=== PATIENT | male | born 1955 | race Caucasian/White ===

== ENCOUNTER 2022-12-24 10:01 | Emergency (ER) | payer OTHER, SELFPAY ==
[2022-12-24 10:03] VITALS: PULSE 86; RESP 16; TEMP 36.6; O2SAT 96; BMI 34.7
--- NOTE | 2022-12-24 10:12 | XRR_ITS ---
PROCEDURE INFORMATION: Exam: XR Chest Exam date and time: 12/24/2022 10:16 AM Age: 67 years old Clinical indication: Cough TECHNIQUE: Imaging protocol: Radiologic exam of the chest. Views: 1 view. COMPARISON: No relevant prior studies available. FINDINGS: Lungs: Small indistinct bandlike density left projecting over the mid lung zones bilaterally likely secondary to minor atelectatic changes. Remaining lung fonseca aerated and clear. Pleural spaces: Unremarkable. No pleural effusion. No pneumothorax. Heart/Mediastinum: Cardiac silhouette is upper limits of normal. Bones/joints: Extensive the postsurgical changes involving the right scapula. Multilevel degenerative endplate osteophytes throughout the thoracic spine. Postsurgical changes left AC joint. No acute bony abnormalities. XR/XR chest 1V portable [id number] IMPRESSION: Scattered platelike atelectasis mid lung zones bilaterally otherwise negative chest.
--- NOTE | 2022-12-24 10:27 | ECG_ITS ---
[facility] Test Date: 2022-12-24 Pat Name: Gerald Greene Department: Room: Gender: Male [employer] Manager: : [id number] Requested By: Yolande Kelsey Order Number: [id number] Richardson MD: Danita Webb M.D. Measurements Intervals [place] Rate: 83 P: 52 VT: 183 QRS: -21 QRSD: 115 T: 40 QT: 371 QTc: 438 Interpretive Statements SINUS RHYTHM BORDERLINE LEFT AXIS DEVIATION [QRS AXIS < -20] INCOMPLETE RIGHT BUNDLE BRANCH BLOCK [90+ ms QRS DURATION, TERMINAL R IN V1/V2, 40+ ms S IN I/aVL/V4/V5/V6] No previous ECG available for comparison Electronically Signed On 12-24-2022 11:12:26 CDT by Danita Webb M.D. [id number]
--- NOTE | 2022-12-24 12:50 | PC.NURSE ---
Pt placed in room at this time. He is A&Ox4, but states he is having chest pain when he takes deep breaths, cough with clear phlegm production.
--- NOTE | 2022-12-24 13:14 | W.ED.URI ---
HPI - URI/Sore Throat General: Chief Complaint: Upper Respiratory Infection Stated Complaint: Chest Pain, arm and neck numbness Time Seen by Provider: 12/24/22 11:50 History of Present Illness: Patient presents ER with complaints of pleuritis like chest pain cough congestion and drainage. Patient recently moved his daughter at here about 10 days ago from the [facility]. Patient said he has been bitten by 3 ticks since he has been here and has had this congestion worsening fatigue and pain when he takes a big deep breath since then. Patient has not tried anything [id number] other than Tylenol. Patient did not have any of the symptoms prior to leaving [place]. Review of Systems General: Reports: 10 or more systems reviewed and unremarkable except in HPI and below Physical Exam Const: COMMON NORMALS: no acute distress, average body habitus, patient oriented x3, no limitations, healthy appearing, alert and well nourished HENMT: COMMON NORMALS: normocephalic, atraumatic, hearing grossly normal bilaterally, external ears normal, Normal external nose present and moist oral mucous membranes HEAD & SCALP: normocephalic and atraumatic NOSE: Normal external nose present EXTERNAL EAR: Yes external ears normal Eye: COMMON NORMALS: Equal, round and reactive pupils present, EOMs intact bilaterally, conjunctivae normal and no scleral icterus CONJUNCTIVA: Yes conjunctivae normal PUPIL: Yes Equal, round and reactive pupils present Neck/C-Spine: COMMON NORMALS: full ROM, no lymphadenopathy, supple, no meningeal signs, no JVD and Thyroid normal THYROID: Thyroid normal Lymph: LYMPHATIC: no lymphadenopathy noted Chest: COMMONS NORMALS: normal inspection of the chest and normal palpation of entire chest wall Resp: COMMON NORMALS: normal respiratory effort, No retractions and No use of accessory muscles AUSCULTATION: rhonchi (Diffuse bilaterally) Cardio: COMMON NORMALS: no JVD, regular rate, regular rhythm, S1 normal heart sound present, S2 normal heart sound present, No gallops present (Cardio), No clicks present (Cardio), No murmurs present (Cardio) and No rub (Cardio) RATE: regular rate RHYTHM: regular rhythm HEART SOUNDS: S1 normal heart sound present and S2 normal heart sound present GI: COMMON NORMALS: Normal to inspection, nondistended, normoactive bowel sounds present, Soft to palpation, non-tender, No hepatosplenomegaly present and no masses PALPATION: Yes Soft to palpation and Yes No hepatosplenomegaly present : COMMON NORMALS: Yes no CVA tenderness BLADDER/KIDNEY EXAM: Yes no CVA tenderness Back/Pelvis: COMMON NORMALS: no CVA tenderness Neuro: COMMON NORMALS: patient oriented x3 SENSORIUM/ORIENTATION: Yes alert MENINGEAL SIGNS: Yes no meningeal signs Course Vital Signs: Vital signs: Vital Signs Temperature 97.8 F 12/24/22 10:03 Pulse Rate 86 12/24/22 10:03 Respiratory Rate 16 12/24/22 10:03 Pulse Oximetry 96 12/24/22 10:03 Oxygen Delivery Me thod Room Air 12/24/22 10:03 MDM - URI/Sore Throat Medical Decision Making Patient presents to the ER with complaints of pleuritic type chest pain with shortness of breath cough congestion. Patient denies any fever chills. X-ray was obtained which was essentially negative other than some atelectasis. EKG was obtained which showed normal sinus rhythm with no ST-T wave changes. Patient's lung did have diffuse rhonchi bilaterally. Patient be diagnosed with bronchitis and pleurisy and tick bites and discharged home on antibiotics and steroids. Patient should follow-up with his PCP in the next 7 days as needed. Differential Diagnosis Likely upper respiratory infection, viral infection and bronchitis; Unlikely croup, otitis media, sinusitis, influenza or pharyngitis Medical Records I reviewed the patient's medical records. Lab Data I reviewed the patient's lab results. Radiology Impressions Chest X-Ray 12/24/22 10:12 IMPRESSION: Scattered platelike atelectasis mid lung zones bilaterally otherwise negative chest. EKG Data EKG 1: I personally reviewed and interpreted this EKG as follows: EKG interpretation date: 12/24/22 EKG interpretation time: 10:27 Prior EKG tracings: not available for review Interpretation: EKG showed normal sinus rhythm at 83 bpm, RI 183, QRS of 115, QTc of 438, incomplete right bundle branch block, borderline left axis deviation Discharge Plan Discharge Patient Disposition: Home Clinical Impression: Bronchitis Upper respiratory infection Qualifiers: URI type: unspecified URI Qualified Code(s): J06.9 - Acute upper respiratory infection, unspecified Tick bite Qualifiers: Encounter type: initial encounter Site of tick bite: unspecified site Qualified Code(s): W57.XXXA - Bitten or stung by nonvenomous insect and other nonvenomous arthropods, initial encounter Condition: Stable Prescriptions: New doxycycline hyclate 100 mg capsule 100 mg PO BID 7 Days Qty: 14 0RF prednisone 50 mg tablet 50 mg PO DAILY 5 Days Qty: 5 0RF Discharge Orders: Discharge ED (Routine); Ordered 12/24/22 Ordered By: Audie Gutierrez Patient Instructions: Tick Bite (ED), Acute Bronchitis (ED) Activity Restrictions/Additional Instructions: Please take all your medicine as directed. Please follow-up with your family practice doctor when you get back to [place] and/or in the next 7 days as needed. Coding Level of Care Code ED Fluorescent Lighting Model Maker for Dave Sr
[2022-12-24 13:42] VITALS: BP 164/104; PULSE 82; RESP 22; O2SAT 96
[2022-12-24 13:55] VITALS: BP 142/85; PULSE 83; RESP 25; O2SAT 96
== END 2022-12-24 13:56 | disposition home or self-care (01) ==
PROVIDERS: Emergency Provider Emergency Medicine
DX: J40 Bronchitis, not specified as acute or chronic (principal); J06.9 Acute upper respiratory infection, unspecified; I45.10 Unspecified right bundle-branch block; W57.XXXA Bitten or stung by nonvenomous insect and other nonvenomous arthropods, initial encounter
CPT/HCPCS: 71045; 93005; 99284

== ENCOUNTER 2023-06-16 10:35 | Emergency (ER) | payer OTHER, SELFPAY ==
[2023-06-16] VITALS (10 sets, daily range): BP systolic 110–172; BP diastolic 75–98; PULSE 78–86; RESP 17–18; TEMP 36.8; O2SAT 93–98; BMI 34.0
--- NOTE | 2023-06-16 10:56 | USR_ITS ---
PROCEDURE INFORMATION: Exam: US Scrotum and Artery or Vein of the Abdominal and/or Reproductive Organs, Limited Scrotum Exam date and time: 06/16/2023 11:09 AM Age: 67 years old Clinical indication: Scrotum pain; Prior surgery; Surgery date: 1-6 months; Surgery type: Hydrocele removal; Additional info: Swelling pain - post op TECHNIQUE: Imaging protocol: Real-time ultrasound of the scrotum. Real-time duplex ultrasound scan of the arterial or venous flow with hernandez scale, color Doppler flow and spectral waveform analysis with image documentation. Limited Duplex exam focused of the scrotum. Duplex exam was performed to evaluate for torsion and other vascular conditions. COMPARISON: No relevant prior studies available. FINDINGS: Right testicle: There is a 3 x 5 x 4 mm hypoechoic, nearly anechoic, focus at the right lower testicle without internal flow on color Doppler and mild increased through transmission. No torsion. Normal background parenchymal Duplex waveforms and color doppler. Left testicle: Normal. No mass. No torsion. Normal Duplex waveforms and color doppler. Epididymides: Tiny 2 mm cyst/spermatocele at the left epididymal head. Otherwise unremarkable. Scrotum: Scrotum/soft tissues: Large complex left scrotal collection measuring 5.2 x 4.4 x 6.6 cm with multiple anechoic and hypoechoic cystic spaces and septations. No internal flow on color Doppler. No overlying scrotal thickening or hyperemia. Small right hydrocele. US/US scrotum [id number] IMPRESSION: 1. Large complex peritesticular left scrotal cystic structure measuring up to 6.6 cm suggestive of hematoma. 2. Subcentimeter right testicular focus favored to represent small cyst. Comparison with any available prior imaging would be helpful.
[2023-06-16 11:07] LABS: Basophils % 0.6 %; Eosinophils % 0.4 %; Hematocrit 35.4 % (37-53); Lymphocytes # 1.8 10^3/uL (0.8-4.8); Lymphocytes % 26.9 %; Mean Corpuscular HGB Conc 33.3 g/dL (30-55); Mean Platelet Volume 8.5 fL (7.4-10.4); Monocytes # 0.4 10^3/uL (0.2-0.9); Monocytes % 6.1 %; Neutrophils # 4.41 10^3/uL (1.8-7.7); Neutrophils % 65.4 %; Nucleated Red Blood Cells % 0 %; Platelet Count 259 10^3/cmm (157-399); Red Blood Count 4.07 10^6/uL (3.85-5.65); Red Cell Distribution Width 12.1 % (12.1-15.1); White Blood Count 6.74 10^3/uL (3.29-11.43)
[2023-06-16 11:27] LABS: Alanine Aminotransferase 15 U/L (0-41); Albumin Level 3.8 g/dL (3.5-5.2); Alkaline Phosphatase 84 U/L (40-130); Anion Gap 13.2 (5-19); Aspartate Amino Transferase 10 U/L (0-40); Blood Urea Nitrogen 18 mg/dL (8-23); Calcium 9.6 mg/dL (8.5-10.5); Carbon Dioxide 26 mmol/L (22-29); Chloride 102 mmol/L (98-107); Globulin 2.5 g/dL (1.3-4.6); Glomerular Filtration Rate 74.8 mL/min (90-130); Glucose 378 mg/dL (65-115); Osmolality Calculated 299 mOsm/kg (285-295); Potassium 5.2 mmol/L (3.5-5.1); Sodium 136 mmol/L (136-145); Total Bilirubin 0.2 mg/dL (0.15-1.2); Total Protein 6.3 g/dL (6.6-8.7)
--- NOTE | 2023-06-16 11:51 | ED_ITS ---
HPI - Male Genitourinary 2 General: Chief complaint: Urogenital-Male Stated complaint: post surgerys problems Time Seen by Provider: 06/16/23 10:47 Source: patient Mode of arrival: ambulatory History of Present Illness: 67-year-old male presents emergency room with complaint of swollen painful left testicle. In early April patient had a hydrocele removed. He states shortly after that he started having trouble expenditure a couple courses of antibiotics and is continuing to increase in size and discomfort has not had any fever sweats or chills he is diabetic. He has been able to urinate without difficulty no dysuria urgency or frequency. Additionally patient has a small portion of the incision along the scrotal raphe that is opened up he is intermittently has had some oozing and slight blood from it is not actively bleeding now. MD Complaint: testicle pain and testicle swelling Onset (ago): week(s) Duration: progressively worsening Location: left testicle Radiation: left testicle Severity: moderate Quality: aching Relieving factors: none Exacerbating factors: none Context: recent surgery Associated symptoms: Reports discharge; Deny dysuria, fevers/chills, hematuria, nausea, rash, swelling, urinary incontinence, urinary retention, mass, vomiting or other Review of Systems 2 Const: Denies: fever(s) or chills Card: Denies: chest pain Resp: Denies: dyspnea GI: Denies: abdominal pain, nausea or vomiting : Denies: dysuria, urinary frequency, urinary urgency, urinary incontinence or hematuria Musc: Denies: neck pain or back pain Skin/Breast: Denies: rash Physical Exam 2 Const: GENERAL APPEARANCE: cooperative and comfortable O RIENTATION/CONSCIOUSNESS: Yes awake, Yes oriented to person, Yes oriented to place and Yes oriented to time HENMT: COMMON NORMALS: normocephalic, atraumatic and hearing grossly normal bilaterally HEAD & SCALP: normocephalic and atraumatic Resp: COMMON NORMALS: normal respiratory effort, No retractions, No use of accessory muscles and clear to auscultation bilaterally AUSCULTATION: clear to auscultation bilaterally Cardio: COMMON NORMALS: regular rate, regular rhythm and No murmurs present (Cardio) RATE: regular rate RHYTHM: regular rhythm GI: COMMON NORMALS: Soft to palpation and No hepatosplenomegaly present A USCULTATION: Yes normoactive bowel sounds PALPATION: Yes Soft to palpation, No Tenderness to palpation present (GI), No Guarding due to palpation present (GI) and Yes No hepatosplenomegaly present : OTHER: Left testicle is swollen and firm exquisitely tender to the touch. There is some slight ecchymosis on the inferior aspect of the scrotum. There is a approximately 1 inch area of dehisced incision at the scrotal raphae with no active drainage or bleeding there is some mucousy eschar at the base. No induration of the skin or purulent drainage Extremity: COMMON NORMALS: normal to inspection, capillary refill normal, no clubbing, cyanosis or edema, no calf tenderness and no pedal edema Neuro: SENSORIUM/ORIENTATION: Yes oriented to person, Yes oriented to place and Yes oriented to time Skin: COMMON NORMALS: no rashes or lesions noted GENERAL SKIN EXAM: no rashes or lesions noted Course 2 Vital Signs: Vital signs: Vital Signs Temperature 98.3 F 06/16/23 10:53 Pulse Rate 78 06/16/23 16:11 Respiratory Rate 18 06/16/23 16:11 Blood Pressure 110/85 06/16/23 16:11 Pulse Oximetry 98 06/16/23 16:11 Oxygen Delivery Me thod Room Air 06/16/23 16:00 MDM - Male Medical Decision Making 6 cm hematoma possible abscess in the left scrotum. Concerned he has been treated several times with antibiotics [place] partially treated abscess with his history of diabetes he may develop foreign years gangrene think this may require early intervention. Will transfer to [facility] in [place] for urology consultation and treatment. We did try to call [facility] they told us they had no urology on-call and could not accept the transfer. Medical Records I reviewed the patient's medical records. Lab Data I reviewed the patient's lab results. 06/16/23 11:03 06/16/23 11:03 Radiology Impressions Scrotum Ultrasound 06/16/23 10:56 IMPRESSION: 1. Large complex peritesticular left scrotal cystic structure measuring up to 6.6 cm suggestive of hematoma. 2. Subcentimeter right testicular focus favored to represent small cyst. Comparison with any available prior imaging would be helpful. Laboratory Results WBC 6.74 10^3/uL (3.29-11.43) 06/16/23 11:03 RBC 4.07 10^6/uL (3.85-5.65) 06/16/23 11:03 Hgb 11.80 g/dL (11.27-16.99) 06/16/23 11:03 Hct 35.4 % (37-53) L 06/16/23 11:03 MCV 87.0 fl (82-101) 06/16/23 11:03 MCH 29.0 pg (27-33) 06/16/23 11:03 MCHC 33.3 g/dL (30-55) 06/16/23 11:03 RDW 12.1 % (12.1-15.1) 06/16/23 11:03 Plt Count 259 10^3/cmm (157-399) 06/16/23 11:03 MPV 8.5 fL (7.4-10.4) 06/16/23 11:03 Neut % (Auto) 65.4 % 06/16/23 11:03 Lymph % (Auto) 26.9 % 06/16/23 11:03 [place] % (Auto) 6.1 % 06/16/23 11:03 Eos % (Auto) 0.4 % 06/16/23 11:03 Baso % (Auto) 0.6 % 06/16/23 11:03 Neut # (Auto) 4.41 10^3/uL (1.8-7.7) 06/16/23 11:03 Lymph # (Auto) 1.8 10^3/uL (0.8-4.8) 06/16/23 11:03 [place] # (Auto) 0.4 10^3/uL (0.2-0.9) 06/16/23 11:03 Eos # (Auto) 0.0 10^3/uL (0.0-0.8) 06/16/23 11:03 Baso # (Auto) 0.0 10^3/uL (0.0-0.1) 06/16/23 11:03 Nucleated RBC % (auto) 0 % 06/16/23 11:03 Nucleated RBCs # 0.0 /100WBC 06/16/23 11:03 Sodium 136 mmol/L (136-145) 06/16/23 11:03 Potassium 5.2 mmol/L (3.5-5.1) H 06/16/23 11:03 Chloride 102 mmol/L (98-107) 06/16/23 11:03 Carbon Dioxide 26 mmol/L (22-29) 06/16/23 11:03 Anion Gap 13.2 (5-19) 06/16/23 11:03 BUN 18 mg/dL (8-23) 06/16/23 11:03 Creatinine 1.0 mg/dL (0.7-1.2) 06/16/23 11:03 GFR Calculation 74.8 mL/min (90-130) L 06/16/23 11:03 Glucose 378 mg/dL (65-115) H 06/16/23 11:03 Calculated Osmolality 299 mOsm/kg (285-295) H 06/16/23 11:03 Calcium 9.6 mg/dL (8.5-10.5) 06/16/23 11:03 Total Bilirubin 0.2 mg/dL (0.15-1.2) 06/16/23 11:03 AST 10 U/L (0-40) 06/16/23 11:03 ALT 15 U/L (0-41) 06/16/23 11:03 Alkaline Phosphatase 84 U/L (40-130) 06/16/23 11:03 Total Protein 6.3 g/dL (6.6-8.7) L 06/16/23 11:03 Albumin 3.8 g/dL (3.5-5.2) 06/16/23 11:03 Globulin 2.5 g/dL (1.3-4.6) 06/16/23 11:03 Urine Color Yellow (Yellow) 06/16/23 12:00 Urine Appearance Clear (CLEAR) 06/16/23 12:00 Urine pH 7 (5-7) 06/16/23 12:00 Ur Specific [place] 1.010 (1.005-1.030) 06/16/23 12:00 Urine Protein Neg (Negative) 06/16/23 12:00 Urine Glucose (UA) 4+ (Normal) H 06/16/23 12:00 Urine Ketones 1+ (Negative) H 06/16/23 12:00 Urine Blood Neg (Negative) 06/16/23 12:00 Urine Nitrate Negative (Negative) 06/16/23 12:00 Urine Bilirubin Neg (Negative) 06/16/23 12:00 Urine Urobilinogen Norm mg/dL (Negative) 06/16/23 12:00 Ur Leukocyte Esterase Negative (Negative) 06/16/23 12:00 All radiology interpretation(s) finalized by discharge Discharge Plan Discharge Patient Disposition: Xfer Short-Term Hosp Clinical Impression: Scrotal hematoma, Diabetes mellitus Condition: Stable Coding Level of Care Code ED Payroll Administrative Assistant for Dave Sr
[2023-06-16 12:05] LABS: Add Urine Microscopic? NO; Charge for UA Resulting for Rev
[2023-06-16 12:07] LABS: Bilirubin Urine Neg (Negative); Blood Urine Neg (Negative); Glucose Urine UA 4+ (Normal); Ketones Urine 1+ (Negative); Leukocyte Esterase Urine Negative (Negative); Nitrate Urine Negative (Negative); Protein Urine Neg (Negative); Urine Appearance Clear (CLEAR); Urine Color Yellow (Yellow); Urobilinogen Urine Norm (Negative); pH Urine 7 (5-7)
[2023-06-16] MEDS: morphine 4 mg/mL SDV 1 mL IVP ×3 (13:06→17:10)
[2023-06-16] MEDS: sodium chloride 0.9% 1,000 ML 125 ML IV (14:30)
== END 2023-06-16 17:20 | disposition short-term general hospital (02) ==
PROVIDERS: Emergency Provider Family Medicine
DX: S30.22XA Contusion of scrotum and testes, initial encounter (principal); E11.9 Type 2 diabetes mellitus without complications; X58.XXXA Exposure to other specified factors, initial encounter
CPT/HCPCS: 36415; 76870; 80053; 81003; 85025; 96374; 96376; 99284; J2270; J7030

== ENCOUNTER 2025-01-07 10:42 | Emergency (ER) | payer OTHER, SELFPAY ==
[2025-01-07] VITALS (7 sets, daily range): BP systolic 130–163; BP diastolic 67–94; PULSE 81–86; RESP 16; TEMP 36.9; O2SAT 95–98
--- OUTSIDE RECORDS SUMMARY | 2025-01-07 10:48 | XMS_ITS | Clinical Summary ---
Author Organization [facility] Address [address] [place] [address] Care Team Providers Care Television Reporter Name Role Phone System, Provider Not In [place] Primary Care Provider Unavailable Allergies Active Allergy Reactions Criticality Noted Date Comments Lisinopril Dizziness 08/17/2018 Nsaids (Non-Steroidal Anti-Inflammatory Drug) Unknown-Explain in Comments 07/23/2017 Diarrhea and blood per rectum 30 years ago; Tolerates ketorolac injection Penicillins Rash 09/15/2019 Fluoxetine Unknown-Explain in Comments 02/23/2022 Pt reported Medications Gabapentin (NEURONTIN) 300 mg CapsuleIndication s:neuropathic pain Take 1 capsule by mouth three times daily if needed. Indications: neuropathic pain Active Trazodone (DESYREL) 100 mg Tablet Take 1-2 tablets by mouth every day at bedtime if needed (sleep). Active Quetiapine (SEROQUEL) 25 mg Tablet Take 1 tablet by mouth two times daily if needed. Then take 2 tablets hs prn for mental health for anxiety, thoughts and sleep Active Mirtazapine (REMERON) 30 mg Tablet Take 1 tablet by mouth every day at bedtime. For mood and sleep Active Insulin Glargine (LANTUS) 100 unit/mL Vial Inject 50 Units subcutaneously every day at bedtime. For diabetes Active Insulin Aspart (NOVOLOG) 100 unit/mL (3 mL) Pen Inject 12 Units subcutaneously 3 times daily before meals. For diabetes Active Enalapril (VASOTEC) 20 mg TabletIndications :hypertension Take 1 tablet by mouth every morning. Indications: high blood pressure Active Atenolol (TENORMIN) 25 mg Tablet Take 1 tablet by mouth every morning. Blood pressure Active Aspirin 81 mg EC Tablet Take 1 tablet by mouth every morning. 04/28/23 ASA has been held for 1.5 weeks due to surgery Active Finasteride (PROSCAR) 5 mg Tablet Take 1 tablet by mouth every day at bedtime. For prostate Active Cyclobenzaprine (FLEXERIL) 10 mg Tablet Take 10 mg by mouth 3 times daily. Active Diazepam (VALIUM) 5 mg Tablet Take 5 mg by mouth every 8 hours if needed for anxiety. Active Gemfibrozil (LOPID) 600 mg Tablet Take 1 tablet by mouth every day. For triglycerides and cholesterol Active Metformin (GLUCOPHAGE) 1,000 mg tablet Take 1 tablet by mouth 2 times daily with meals. Active Liraglutide (VICTOZA 2-KRYSTEN) 0.6 mg/0.1 mL (18 mg/3 mL) PenIndications:ty pe 2 diabetes mellitus Inject 0.6 mg subcutaneously every morning. Indications: type 2 diabetes mellitus Active Divalproex (DEPAKOTE ER) 500 mg Extended Release Tablet Take 2 tablets by mouth every day at bedtime. To stabilize mood for anxiety and mood labiity Active Rosuvastatin (CRESTOR) 10 mg Tablet Take 1 tablet by mouth every day at bedtime. For cholesterol Active HydrOXYzine (VISTARIL) 25 mg Capsule as Pamoate Take 1-2 capsules by mouth three times daily if needed for anxiety. Active Dicyclomine (BENTYL) 10 mg CapsuleIndication s:Abdominal pain, unspecified abdominal location Take 1 capsule by mouth every 6 hours for 7 days. 28 capsule 11/30/19 Active Oxycodone (ROXICODONE) 5 mg Tablet Take 1 tablet by mouth every 4 hours if needed for pain. Active Duloxetine (CYMBALTA) 30 mg Delayed Release Capsule Take 3 capsules by mouth every day. Take 1 cap qam and 2 caps hs for mood, pain and anxiety. Do not crush or chew. Active HydrOXYzine (ATARAX) 25 mg Tablet as Hydrochloride Take 1 tablet by mouth two times daily if needed for anxiety. Active Acetaminophen (TYLENOL) 500 mg Tablet Take 1 tablet by mouth every 6 hours if needed for pain. DNE more than 4g of APAP per day Active Naloxone (NARCAN) 4 mg/actuation Nasal [place] Instill 1 spray into ONE nostril. Use as needed for suspected opioid overdose. Call 911. [place] into one nostril upon signs of opioid overdose. Additional doses may be given every 2 to 3 minutes until emergency medical assistance arrives. Alternate nostrils with each dose. Use each nasal spray only one time. Active semaglutide 0.25 mg or 0.5 mg (2 mg/3 mL) Pen Injector Inject 0.5 mg subcutaneously one time each week. For diabetes Active Albuterol (PROAIR HFA, PROVENTIL HFA, VENTOLIN HFA) 90 mcg/actuation inhaler Take 2 puffs by inhalation 4 times daily if needed (for breathing). Active Sildenafil (VIAGRA) 100 mg Tablet Take 1 tablet by mouth if needed for Erectile Dysfunction. Take 1 tablet by mouth once daily if needed for Erectile Dysfunction. Not to exceed more than 1 tablet in a 24 hour period. Active MULTIVITAMIN PO Take 1 tablet by mouth. For vitamin supplement Active Mica-3 Acid Ethyl Esters (LOVAZA) 1 gram Capsule Take 2 capsules by mouth 2 times daily. Active Carboxymethylcell ulose (REFRESH) 0.5 % Drops Ophthalmic SolutionIndicatio ns:dry eye Instill 1 drop into EACH eye every 2 hours if needed. Indications: dry eye Active Active Problems Problem Noted Date Diagnosed Date Toothache 11/02/2024 Left flank pain 04/30/2024 Epididymoorchitis 04/28/2023 Abdominal pain, unspecified abdominal location 0 11/29/2022 Vomiting and diarrhea 11/29/2022 Acute URI 06/06/2022 Acute cough 06/06/2022 Contusion of right chest wall, initial encounter 02/26/2022 Arm bruise, right, initial encounter 02/26/2022 Alcoholic intoxication without complication 02/14 Fall, initial encounter 02/23/2022 Closed head injury, initial encounter 02/23/2022 Closed nondisplaced fracture of proximal phalanx of right great toe, initial encounter 02/28/2021 Closed nondisplaced fracture of proximal phalanx of lesser toe of left foot, initial encounter 02/28/2021 Acute febrile illness 09/07/2020 Sepsis 09/07/2020 Loculated pleural effusion 09/07/2020 Contusion of right lung 09/06/2020 Acute respiratory failure with hypoxia Uncontrolled type 2 diabetes mellitus with hyper glycemia 09/06/2020 Essential hypertension 09/06/2020 Right pulmonary contusion 09/06/2020 Contusion of right lung, initial encounter 09/06 Pulmonary nodule 09/06/2020 Contusion of right upper extremity, initial enco unter 01/15/2020 Back pain, unspecified back location, unspecified back pain laterality, unspecified chronicity 09/15/2019 Hoarseness of voice 09/15/2019 LLQ pain 06/25/2019 Acute left-sided low back pain without sciatica 06/22/2019 Generalized abdominal pain 06/22/2019 Left flank pain, chronic 06/21/2019 Lumbar back pain 06/21/2019 Groin strain, initial encounter 01/24/2019 Other infective acute otitis externa of right ea r 12/24/2018 Contusion of flank and back, initial encounter 0 08/18/2018 Hyperglycemia 08/18/2018 Other mucopurulent conjunctivitis of both eyes 0 08/02/2018 Cough 07/16/2018 Dyspnea, unspecified type 07/16/2018 Bronchitis 02/24/2018 Acute right flank pain 10/28/2017 Acromioclavicular (AC) joint injury, left, initial encounter 07/23/2017 Chronic pain syndrome 07/23/2017 Encounters Date Type Department Care Team Description 11/02/2024 7:30 PM PDT - 11/02/2024 8:03 PM PDT Emergency [facility] Emergency Department [address] [place] [address] Kennedy Gonzalez MD Dx: Toothache (Primary Dx) Discharge Disposition: Discharged to Home or Self Care (Routine Discharge) from Last 3 Months Immunizations Immunization Administration Dates Next Due Influenza, Quadrivalent, (FLULAVAL, FLUZONE, FLU ARIX) 09/09/2020 Social History Tobacco Use Types Packs/Day Years Used Date Smoking Tobacco: Former Smokeless Tobacco: Never Alcohol Use Standard Drinks/Week Comments Yes 0 (1 standard drink = 0.6 oz pur e alcohol) previous, quit AUDIT-C Answer Date Recorded Q1: How often do you have a drink containing alc ohol? Monthly or less 09/15/2019 Average Number of Drinks Not on file 020 Frequency of Binge Drinking Not on file 06/2019 Sex and Gender Information Value Date Recorded Sex Assigned at Not on file Legal Sex Male 1:28 PM PST Gender Identity Not on file Sexual Orientation Not on file Last Filed Vital Signs Vital Sign Reading Time Taken Comments Blood Pressure 145/81 11/02/2024 7:25 PM PDT Pulse 85 11/02/2024 7:25 PM PDT Temperature 36.1 C (96.9 F) 11/02/2024 7:25 PM PDT Respiratory Rate 18 11/02/2024 7:25 PM PDT Oxygen Saturation 98% 11/02/2024 7:25 PM PDT Inhaled Oxygen Concentration - - Weight 93.1 kg (205 lb 2.2 oz) 11/02/2024 7:25 P M PDT Height 175.3 cm (5' 9 ) 11/02/2024 7:25 PM PDT Body Mass Index 30.29 11/02/2024 7:25 PM PDT Plan of Treatment Health Maintenance Due Date Last Done Comments Cologuard 1955 Colonoscopy 1955 Colorectal Cancer Screening 1955 DIABETES-NEPHROPATHY SCREENING 1956 DIABETES-NEUROPATHY SCREENING 1956 DIABETES-RETINOPATHY SCREENING 1956 Discuss Risks and Benefits o f PSA 1956 Fecal Immunochemical Test 1956 Flexible Sigmoidoscopy 1956 HEMOGLOBIN A1C 1956 LDL Screening 1956 PSA Discussion Benefits and Risk 1956 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 Statin Therapy: Primary Prevention 1956 Pneumococcal vaccine 50+ (1 of 2 - PCV) 09/25/1975 07/05/2009 Shingrix (Zoster) (1 of 2) 2006 Advance Care Planning 2021 Fall Risk Assessment 2021 Covid-19 Vaccine (1 - 2023-2 5 season) 2024 INFLUENZA 01/14/2025 09/09/2020 DTAP/TDAP/TD (2 - Td or Tdap) 09/13/2028 09/13/2018 Abdominal Aortic Aneurysm Screening Completed 10/28/2017, 01/01/2011 HPV VACCINE Aged Out No longer eligi ble based on patient's age to complete this topic Procedures Procedure Name Priority Date/Time Associated Diagnosis Comments CT ABDOMEN + PELVIS WITHOUT CONTRAST STAT 10/28/2017 1:23 AM PDT from Last 3 Months or Most Recently Relevant to Health Maintenance Results * CT ABDOMEN + PELVIS WITHOUT CONTRAST (10/28/2017 1:23 AM PDT) Anatomical Region Laterality Modality Abdomen Computed Tomogra phy Impressions 10/28/2017 8:34 AM PDT IMPRESSION: 1. Patchy left basilar infiltrate, incompletely imaged. 2. Punctate nonobstructing left upper pole left renal stone. 3. No evidence of hydronephrosis on either side. 4. Perinephric stranding, left greater than right. This is nonspecific but might indicate pyelonephritis. 5. Normal appendix. 6. Diverticular change of the colon without diverticulitis. CT DI 20.9, DLP 1111 There is no significant discrepancy from the preliminary report by the [facility] physician. Narrative 10/28/2017 8:34 AM PDT Clinical history: Right-sided flank pain with history of kidney stones and diverticulitis CT scan of the abdomen and pelvis Sequential 3 mm axial scans of the abdomen and pelvis were performed without contrast. Patchy left basilar infiltrate is suggested but incompletely visualized. There is scant pleural fluid bilaterally. The liver, spleen, gallbladder, and pancreas are within normal limits. The adrenal glands are normal size and configuration. Both kidneys are normal size without hydronephrosis nor nephrolithiasis. There is perinephric stranding raising the possibility of pyelonephritis. Aorta is of normal caliber without aneurysm. Bowel caliber is normal. Diverticular changes present throughout the colon without free air or free fluid. The appendix is normal. Scans through the pelvis show a symmetrical bladder. There is no pelvic mass or fluid collection. There is no adenopathy. There is no evidence of hernia. Procedure Note Braden Baltazar MD - 10/28/2017 Clinical history: Right-sided flank pain with history of kidney stones anddiverticulitis CT scan of the abdomen and pelvis Sequential 3 mm axial scans of the abdomen and pelvis were performedwithout contrast. Patchy left basilar infiltrate is suggested butincompletely visualized. There is scant pleural fluid bilaterally. Theliver, spleen, gallbladder, and pancreas are within normal limits. Theadrenal glands are normal size and configuration. Both kidneys are normalsize without hydronephrosis nor nephrolithiasis. There is perinephricstranding raising the possibility of pyelonephritis. Aorta is of normalcaliber without aneurysm. Bowel caliber is normal. Diverticular changespresent throughout the colon without free air or free fluid. The appendixis normal. Scans through the pelvis show a symmetrical bladder. There is no pelvicmass or fluid collection. There is no adenopathy. There is no evidence ofhernia. IMPRESSION IMPRESSION: 1. Patchy left basilar infiltrate, incompletely imaged. 2. Punctate nonobstructing left upper pole left renal stone. 3. No evidence of hydronephrosis on either side. 4. Perinephric stranding, left greater than right. This is nonspecific butmight indicate pyelonephritis. 5. Normal appendix. 6. Diverticular change of the colon without diverticulitis. CT DI 20.9, DLP 1111 There is no significant discrepancy from the preliminary report by the[facility] physician. Nikki Kuhn MD COMPUTERIZED TOMOGRAPHY F inal Result from Last 3 Months or Most Recently Relevant to Health Maintenance Insurance [facility] MEDIC[facility] PART A ONLY Advance Directives * Full (Latest Code Status on File) Date Activated Date Inactivated Comments 09/06/2020 7:35 PM 09/10/2020 5:55 PM Care Teams Television Reporter Relationship Specialty Start Date End Date System, Provider Not In, ERNIE PCP - General 04/28/23
--- OUTSIDE RECORDS SUMMARY | 2025-01-07 10:48 | XMS_ITS | Clinical Summary ---
Author Organization [facility] [place] Address [address], [place] [address] Care Team Providers Care Training Developer Name Role Phone Unavailable Primary Care Provider Unavailabl e Source Comments NOTE: The information displayed by Care Everywhere is extracted from the complete medical record and may not identify all current or past patient conditions.[facility] Allergies Active Allergy Reactions Criticality Noted Date Comments Lisinopril 09/13/2018 Non-Steroidal Anti-Inflammatory Agents 09/13/2018 Penicillins Class 09/13/2018 Medications Medication Sig Dispensed Refills Start Date End Date Status HYDROcodone-Acetamino phen (NORCO) 5-325 mg Oral Tab Take 1 tablet by mouth every 6 hours as needed for pain 10 0 09/13/2018 Active Acetaminophen (Mapap) 325 mg Oral Tab Take 2 tablets by mouth every 4 to 6 hours as needed for pain or fever. Do not exceed 10 tablets in 24 hours 100 0 09/13/2018 Active Bacitracin-Polymyxin B (POLYSPORIN) 500-10,000 unit/gram Top Oint Apply to affected area(s) 1 to 3 times a day or as directed 28.35 0 09/13/2018 Active HYDROcodone-Acetamino phen (NORCO) 5-325 mg Oral Tab Take 1 tablet by mouth every 6 hours as needed for pain 10 0 05/08/2019 Active Immunizations Name Administration Dates Next Due Tdap (ADACEL) (Tetanus, diph theria, acellular pertussis) 09/13/2018 Social History Tobacco Use Types Packs/Day Years Used Date Smoking Tobacco: Never Assessed Sex and Gender Information Value Date Recorded Sex Assigned at Not on file Gender Identity Not on file Sexual Orientation Not on file Last Filed Vital Signs Vital Sign Reading Time Taken Comments Blood Pressure 127/79 05/08/2019 3:50 PM PST Pulse 70 05/08/2019 3:50 PM PST Temperature 36.9 C (98.5 F) 05/08/2019 3:40 PM PST Respiratory Rate 18 05/08/2019 3:50 PM PST Oxygen Saturation 100% 05/08/2019 3:50 PM PST Inhaled Oxygen Concentration - - Weight 107.2 kg (236 lb 6.4 oz) 05/08/2019 9:37 AM PST Height - - Body Mass Index - - Plan of Treatment Not on file
--- OUTSIDE RECORDS SUMMARY | 2025-01-07 10:48 | XMS_ITS | Clinical Summary ---
Author Organization [facility] Address [address] [place] [id number] Care Team Providers Care Yoghurt Maker Name Role Phone Lisset Giles MD Primary Care Provider [phone] Source Comments This information has been disclosed to you from records protected by Federal confidentiality rules (42 CFR part 2). The Federal rules prohibit you from making any further disclosure of this information unless further disclosure is expressly permitted by the written consent of the person to whom it pertains or as otherwise permitted by 42 CFR part 2. A general authorization for the release of medical or other information is NOT sufficient for this purpose. The Federal rules restrict any use of the information to criminally investigate or prosecute any alcohol or drug abuse patient.[facility] Allergies Active Allergy Reactions Criticality Noted Date Comments Lisinopril Medium 04/26/2016 Beepen-Vk Medium 04/26/2016 Medications Albuterol Sulfate (PROVENTIL HFA IN) Take 2 Puffs as an inhalation twice daily Active aspirin 81mg Tab Take 81 mg by mouth daily Active atenolol (TENORMIN) 25mg Tab Take 25 mg by mouth daily Active budesonide/for moterol (SYMBICORT) 160mcg/4.5mcg Oral Inhaler Inhale 2 Puffs by mouth twice daily Active Carboxymethylc ellul-Glycerin (CARBOXYMETHYL CELL-GLYCERIN PF) 0.5-0.9 % SOLN Apply 1 Drop to affected eye(s) every 1 to 2 hours as needed Active cyclobenzaprin e (FLEXERIL) 10mg Tab Take 10 mg by mouth three times daily as needed Active diazepam (VALIUM) 5mg Tab Take 5 mg by mouth every 6 hours as needed for Muscle Spasms Active doxazosin 24Hr-ER (CARDURA XL) 8mg Tab Take 8 mg by mouth daily with breakfast Active enalapril (VASOTEC) 5mg Tab Take 5 mg by mouth daily Active finasteride (PROSCAR) 5mg Tab Take 5 mg by mouth daily Active gemfibrozil (LOPID) 600mg Tab Take 600 mg by mouth twice daily 30 minutes before breakfast and dinner Active glyBURide (MICRONASE) 5mg Tab Take 10 mg by mouth daily with breakfast Active insulin NPH human (HUMULIN N KWIKPEN) 100units/mL Prefilled Pen Administer 65 Units subcutaneously daily at bedtime Active Insulin Aspart 100 UNIT/ML SOCT Administer subcutaneously Sliding scale Active metFORMIN (GLUCOPHAGE) 1000mg Tab Take 1,000 mg by mouth twice daily with breakfast and dinner Active mirtazapine (REMERON) 45mg Tab Take 45 mg by mouth daily at bedtime Active Multiple Vitamins-Bergen als (MULTIVITAMIN & MINERAL PO) Take 1 Tablet by mouth daily Active fish oil (OMEGA 3 FATTY ACID) 1g CAPS Take 2 g by mouth daily Active QUEtiapine (SEROQUEL) 25mg Tab Take 25 mg by mouth daily at bedtime Active rosuvastatin (CRESTOR) 10mg Tab Take 10 mg by mouth daily Active traZODone (DESYREL) 100mg Tab Take 100 mg by mouth daily at bedtime Active HYDROcodone/ac etaminophen (NORCO) 10mg/325mg Tab Take 2 Tabs by mouth every 8 hours as needed Active HYDROcodone/ac etaminophen (NORCO 5) 5mg/325mg Tab Take 1-2 Tabs by mouth every 4 hours as needed 20 Tab 6 Active Social History Tobacco Use Types Packs/Day Years Used Date Smoking Tobacco: Never Assessed Sex and Gender Information Value Date Recorded Sex Assigned at Not on file Legal Sex Male 10:54 AM PST Gender Identity Not on file Sexual Orientation Not on file Last Filed Vital Signs Vital Sign Reading Time Taken Comments Blood Pressure 141/85 04/26/2016 1:30 PM PST Pulse 67 04/26/2016 1:30 PM PST Temperature 36.9 C (98.4 F) 04/26/2016 10:04 AM PST Respiratory Rate 16 04/26/2016 1:30 PM PST Oxygen Saturation 93% 04/26/2016 1:30 PM PST Inhaled Oxygen Concentration - - Weight 106.6 kg (235 lb) 04/26/2016 10:04 AM PST Height 175.3 cm (5' 9 ) 04/26/2016 10:04 AM PST Body Mass Index 34.7 04/26/2016 10:04 AM PST Plan of Treatment Health Maintenance Due Date Last Done Comments LIPID SCREENING 1966 HEPATITIS C SCREENING 1974 DTaP,Tdap,or Td Vaccine (1 - Tdap) 09/25/1975 MMR VACCINE ADULT 09/25/1975 COLORECTAL CANCER SCREENING DISCUSSION 2001 PNEUMOCOCCAL VACCINE 50+ YEA RS (1 of 1 - PCV) 2006 ZOSTER VACCINE (Shingrix w/w o Zostavax) (1 of 2) 2006 ADVANCE DIRECTIVE DISCUSSION 2021 COVID-19 Vaccine ( - 2023-2 5 season) 2024 INFLUENZA VACCINE 03/16/2025 RSV VACCINE 60+ YEARS OR PRE GNANT (1 - 1-dose 75+ series) 09/25/2031 HEPATITIS A VACCINE Aged Out No longe r eligible based on patient's age to complete this topic HPV VACCINE Aged Out No longer eligi ble based on patient's age to complete this topic MENINGOCOCCAL ACWY VACCINE Aged Out N o longer eligible based on patient's age to complete this topic [facility] Yoghurt Maker Relationship Specialty Start Date End Date Lisset Giles MD [id number] [phone] PCP - General 05/07/10
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
--- OUTSIDE RECORDS SUMMARY | 2025-01-07 10:48 | XMS_ITS | Clinical Summary ---
Author Organization [facility] Address [address] [place] [address] Phone Care Team Providers Care Trust Mail Clerk Name Role Phone Unavailable Primary Care Provider Unavailabl e Allergies Active Allergy Reactions Criticality Noted Date Comments Codeine Diarrhea Low 06/16/2023 Bloody diarrhea Lisinopril Syncope Medium 06/16/2023 Penicillins Other (See Comments) Low 06/16/2023 Was unable to walk for one week. Medications traZODone (DESYREL) 150 mg tablet Take 200 mg by mouth daily at bedtime. Active mirtazapine (REMERON) 45 mg tablet Take 45 mg by mouth daily at bedtime. Active QUEtiapine (SEROquel) 50 mg tablet Take 50 mg by mouth 2 times daily. Active hydrOXYzine pamoate (VISTARIL) 50 mg capsule Take 50 mg by mouth 3 times daily as needed for Itching. Active insulin glargine (LANTUS) 100 unit/mL pen syringe Inject 60 Units by subcutaneous injection daily at bedtime. Active atenoloL (TENORMIN) 25 mg tablet Take 10 mg by mouth daily. Active cyclobenzaprine (FLEXERIL) 10 mg tablet Take 10 mg by mouth 3 times daily as needed for Spasm. Active metFORMIN (GLUCOPHAGE) 1,000 mg tablet Take 1,000 mg by mouth 2 times daily with meals. Active rosuvastatin (CRESTOR) 20 mg tablet Take 20 mg by mouth daily. Active insulin aspart (NovoLOG) 100 unit/mL injection Inject 12 Units by subcutaneous injection 3 times daily with meals. Active gabapentin (NEURONTIN) 300 mg capsule Take 300 mg by mouth 3 times daily. Active insulin lispro (HumaLOG) 100 unit/mL pen syringe Inject 0-18 Units by subcutaneous injection 3 times daily with meals. Give when NPO or WITH MEAL. High-Dose Meal Correction: Less than or equal to 180 = no correctional insulin 181 - 200 = give and/or add 3 units 201 - 250 = give and/or add 6 units 251 - 300 = give and/or add 9 units 301 - 350 = give and/or add 12 units 351 - 400 = give and/or add 15 units 401 and greater = give and/or add 18 units CONTACT PHYSICIAN/NIKI - If blood sugar greater than 250 mg/dL - If blood sugar greater than 180 mg/dL for two consecutive readings 15 mL 06/21/2023 1:19 PM FRAMING CONSULTANT 4 Active naloxone (NARCAN) 4 mg/spray [place], Non-Aerosol EMERGENCY USE ONLY: Administer 1 spray (4 mg) in one nostril one time. May repeat in alternating nostrils every 2-3 min until responsive or EMS arrives. 2 Each 3 4 Active Active Problems Problem Noted Date Diagnosed Date Essential hypertension 06/17/2023 Mood disorder 06/17/2023 Scrotal hematoma 06/17/2023 Anxiety 06/17/2023 HLD (hyperlipidemia) 06/17/2023 Insulin dependent type 2 diabetes mellitus 06/17 Obesity (BMI 30.0-34.9) 06/17/2023 Social History Tobacco Use Types Packs/Day Years Used Date Smoking Tobacco: Former Cigarettes 2 20 Tobacco Cessation:Counseling Given: Not Answered Alcohol Use Standard Drinks/Week Comments Not Currently 0 (1 standard drink = 0.6 oz pur e alcohol) Sex and Gender Information Value Date Recorded Sex Assigned at Not on file Legal Sex Male 12:27 PM FRAMING CONSULTANT Gender Identity Not on file Sexual Orientation Not on file Last Filed Vital Signs Vital Sign Reading Time Taken Comments Blood Pressure 129/82 06/21/2023 12:04 PM FRAMING CONSULTANT Pulse 59 06/21/2023 12:04 PM FRAMING CONSULTANT Temperature 37.6 C (99.6 F) 06/21/2023 12:04 PM FRAMING CONSULTANT Respiratory Rate 16 06/21/2023 12:0 4 PM FRAMING CONSULTANT Oxygen Saturation 97% 06/21/2023 12: 04 PM FRAMING CONSULTANT Inhaled Oxygen Concentration - - Weight 101.1 kg (222 lb 14.2 oz) 06/21/2023 4:38 AM FRAMING CONSULTANT Height 175.3 cm (5' 9 ) 06/17/2023 12:1 2 AM FRAMING CONSULTANT Body Mass Index 32.91 06/17/2023 12:12 AM FRAMING CONSULTANT Plan of Treatment Health Maintenance Due Date Last Done Comments DIABETES ANNUAL FOOT EXAM 1974 DIABETES ANNUAL RETINAL EXAM 1974 DIABETES HBA1C Q 6 MONTHS 1974 DIABETES MICROALBUMIN ANNUAL SCREEN 1974 LDL CHOLESTEROL ANNUAL 1974 DTAP/TDAP/TD VACCINES (1 - Tdap) 09/25/1975 PNEUMOCOCCAL VACCINE 50+ YEARS (1 of 2 - PCV) 09/24/18 76 COLORECTAL SCREENING 2001 Colorectal Cancer Screening 2001 FIT-DNA Q 3 years 2001 FIT/FOBT Q 1 year 2001 Flex Sig/CT Colonography Q 5 years 2001 ZOSTER VACCINE (1 of 2) 2006 RSV VACCINE (60+ or ) (1 - Risk 60-74 years 1-dose series) 2016 INFLUENZA VACCINE (#1) 2025 Insurance RX [employer] (INTERNAL) [facility] [employer] * Guarantor: [facility] Account Type Relation to Patient Date of Phone Billing Address Corporate Other DEFAULT ADDRESS [address] [employer] Member Subscriber Plan / Payer (Ef fective 2000-Present) Name:Gerald Greene Relation to Subscriber:Self Name:Gerald Greene Payer ID:Not on file Group ID:Not on file Type:CO Address: [facility] [id number] Advance Directives For more information, please contact: [phone] * Full Code (Latest Code Status on File) Date Activated Date Inactivated Comments 06/17/2023 2:18 PM 06/21/2023 3:24 PM * Full Code Date Activated Date Inactivated Comments 06/16/2023 7:38 PM 06/17/2023 2:18 PM
--- NOTE | 2025-01-07 10:53 | W.ED.CHESTPA ---
HPI - Chest Pain General: Chief Complaint: Chest Pain Stated Complaint: Chest Pain Time Seen by Provider: 01/07/25 10:51 History of Present Illness: 69-year-old male presents emergency room complaining of chest discomfort and a recent sign. He said 3 days of chest discomfort. Worse when he is outside in the heat is not associated with exertion. Associated symptoms: Deny abdominal pain, dyspnea or fever(s) Related Data Previous Rx's ?Medication ?Instructions ?Recorded aspirin 81 mg tablet,delayed 81 mg PO DAILY #30 tabs 01/07/25 release pantoprazole 40 mg tablet,delayed 40 mg PO DAILY #30 tabs 01/07/25 release (Protonix) Allergies Allergy/AdvReac Type Severity Reaction Status Date / Time lisinopril AdvReac Intermediate ADR-Faintin Verified 12/24/22 10:09 g NSAIDS (Non-Steroidal AdvReac Mild ADR-Cramping Verified 12/24/22 10:10 Anti-Inflamma of the Muscles Penicillins AdvReac Mild ADR-Cramping Verified 12/24/22 10:08 of the Muscles Review of Systems Const: Denies: fever(s) or chills Card: Reports: chest pain Resp: Denies: dyspnea GI: Denies: abdominal pain : Denies: dysuria, urinary frequency or urinary urgency Musc: Denies: neck pain or back pain Skin/Breast: Denies: rash Physical Exam Const: COMMON NORMALS: no acute distress GENERAL APPEARANCE: cooperative and comfortable ORIENTATION/CONSCIOUSNESS: Yes awake, Yes oriented to person, Yes oriented to place and Yes oriented to time HENMT: COMMON NORMALS: normocephalic, atraumatic and hearing grossly normal bilaterally HEAD & SCALP: normocephalic and atraumatic Resp: COMMON NORMALS: normal respiratory effort, No retractions, No use of accessory muscles and clear to auscultation bilaterally AUSCULTATION: clear to auscultation bilaterally Cardio: COMMON NORMALS: regular rate, regular rhythm and No murmurs present (Cardio) RATE: regular rate RHYTHM: regular rhythm GI: COMMON NORMALS: Soft to palpation and No hepatosplenomegaly present AUSCULTATION: Yes normoactive bowel sounds PALPATION: Yes Soft to palpation, No Tenderness to palpation present (GI), No Guarding due to palpation present (GI) and Yes No hepatosplenomegaly present Extremity: COMMON NORMALS: normal to inspection, capillary refill normal, no clubbing, cyanosis or edema, no calf tenderness and no pedal edema Neuro: SENSORIUM/ORIENTATION: Yes oriented to person, Yes oriented to place and Yes oriented to time Skin: COMMON NORMALS: no rashes or lesions noted GENERAL SKIN EXAM: no rashes or lesions noted Course Vital Signs: Vital signs: Vital Signs Temperature 98.4 F 01/07/25 10:43 Pulse Rate 82 01/07/25 14:12 Respiratory Rate 16 01/07/25 14:12 Blood Pressure 163/94 01/07/25 14:12 Pulse Oximetry 95 01/07/25 14:12 Oxygen Delivery Me thod Room Air 01/07/25 10:43 MDM - Chest Pain Medical Decision Making EKGs reviewed as found on chart cardiac enzymes and EKG showed no signs of acute coronary syndrome EKG does not show any acute ST changes. Patient states she has chronic burning pain. Suspect some of this is GI related started on pantoprazole septic baby aspirin daily. Discharge home recommend follow-up with primary care doctor if symptoms persist or worsen return. Medical Records I reviewed the patient's medical records. Lab Data I reviewed the patient's lab results. 01/07/25 11:55 01/07/25 11:55 Radiology Impressions Chest X-Ray 01/07/25 11:20 Impression: Atherosclerosis. Laboratory Results WBC 4.00 10^3/uL (3.29-11.43) 01/07/25 11:55 RBC 4.06 10^6/uL (3.85-5.65) 01/07/25 11:55 Hgb 11.90 g/dL (11.27-16.99) 01/07/25 11:55 Hct 34.5 % (37-53) L 01/07/25 11:55 MCV 85.0 fl (82-101) 01/07/25 11:55 MCH 29.3 pg (27-33) 01/07/25 11:55 MCHC 34.5 g/dL (30-55) 01/07/25 11:55 RDW 13.1 % (12.1-15.1) 01/07/25 11:55 Plt Count 255 10^3/cmm (157-399) 01/07/25 11:55 MPV 8.7 fL (7.4-10.4) 01/07/25 11:55 Neut % (Auto) 49.4 % 01/07/25 11:55 Lymph % (Auto) 41.5 % 01/07/25 11:55 [place] % (Auto) 7.0 % 01/07/25 11:55 Eos % (Auto) 0.5 % 01/07/25 11:55 Baso % (Auto) 1.3 % 01/07/25 11:55 Neut # (Auto) 1.98 10^3/uL (1.8-7.7) 01/07/25 11:55 Lymph # (Auto) 1.7 10^3/uL (0.8-4.8) 01/07/25 11:55 [place] # (Auto) 0.3 10^3/uL (0.2-0.9) 01/07/25 11:55 Eos # (Auto) 0.0 10^3/uL (0.0-0.8) 01/07/25 11:55 Baso # (Auto) 0.1 10^3/uL (0.0-0.1) 01/07/25 11:55 Nucleated RBC % (auto) 0 % 01/07/25 11:55 Nucleated RBCs # 0.0 /100WBC 01/07/25 11:55 Sodium 137 mmol/L (136-145) 01/07/25 11:55 Potassium 4.8 mmol/L (3.5-5.1) 01/07/25 11:55 Chloride 100 mmol/L (98-107) 01/07/25 11:55 Carbon Dioxide 24 mmol/L (22-29) 01/07/25 11:55 Anion Gap 17.8 (5-19) 01/07/25 11:55 BUN 16 mg/dL (8-23) 01/07/25 11:55 Creatinine 0.8 mg/dL (0.7-1.2) 01/07/25 11:55 GFR Calculation 96.1 mL/min (90-130) 01/07/25 11:55 Glucose 281 mg/dL (65-115) H 01/07/25 11:55 Calculated Osmolality 295 mOsm/kg (285-295) 01/07/25 11:55 Calcium 8.8 mg/dL (8.5-10.5) 01/07/25 11:55 Total Bilirubin 0.3 mg/dL (0.15-1.2) 01/07/25 11:55 AST 8 U/L (0-40) 01/07/25 11:55 ALT 7 U/L (0-41) 01/07/25 11:55 Alkaline Phosphatase 70 U/L (40-130) 01/07/25 11:55 Troponin T Baseline 17 ng/L (0-15) H 01/07/25 11:55 Troponin T 120 Minute 15.68 ng/L (0-15) H 01/07/25 13:30 Delta Troponin T -1.32 ABS# (0-10) L 01/07/25 13:30 Total Protein 6.0 g/dL (6.6-8.7) L 01/07/25 11:55 Albumin 4.2 g/dL (3.5-5.2) 01/07/25 11:55 Globulin 1.8 g/dL (1.3-4.6) 01/07/25 11:55 All radiology interpretation(s) finalized by discharge EKG Data EKG 1: Interpretation: EKG 01/07/2025 1046 normal sinus rhythm rate of 84 MA interval 183 QTc [address] changes noted ST elevation some mildly peaked T waves. Compared to previous EKG December 24, 2022 no acute changes noted Discharge Plan Discharge Patient Disposition: Home Clinical Impression: Atypical chest pain, GERD (gastroesophageal reflux disease) Condition: Stable Prescriptions: New aspirin 81 mg tablet,delayed release (DR/EC) 81 mg PO DAILY Qty: 30 0RF pantoprazole [Protonix] 40 mg tablet,delayed release (DR/EC) 40 mg PO DAILY Qty: 30 0RF Discharge Orders: Discharge ED (Routine); Ordered 01/07/25 Ordered By: Humberto Burns Patient Instructions: Opioid Safety, Pain Management, Patient Portal & [place] Instructions Activity Restrictions/Additional Instructions: [facility] It is very important that you follow up as instructed or that you return to the Emergency Department should you have concerns or if your condition changes or worsens in any way. You were seen in the emergency room with a complaint of chest discomfort. This been going on for several days per your report. Your EKG did not show any acute changes your cardiac enzymes were normal your chest x-ray was also normal. Suspect based on your description of symptoms some of this is a result of reflux. Will start you on pantoprazole 40 mg daily recommend 1 pill twice a day for 10 days then 1 pill daily. Follow-up with your primary care doctor. Also recommend he take baby aspirin enteric-coated daily. Print Language: French Coding Level of Care Code ED [employer] Tr[employer] for Dave Sr
--- NOTE | 2025-01-07 11:20 | ECG_ITS ---
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
--- NOTE | 2025-01-07 11:20 | XR_ITS ---
WS: [id number] Portable AP upright chest, 01/07/2025 Clinical Data: chest pain Comparison: Portable chest, 12/24/2022 Findings: No nodules, masses or effusions are seen. The heart is normal. The pulmonary vascularity is not increased. No pneumonia or pneumothorax is seen. The aortic arch shows minimal calcification. There is linear atelectasis in the right midlung. There are surgical plates and screws repairing an old fracture of the glenoid fossa and lateral scapula. Monitor leads are on the chest wall. XR/XR chest 1V portable [id number] Impression: Atherosclerosis.
[2025-01-07 12:26] LABS: Alanine Aminotransferase 7 U/L (0-41); Albumin Level 4.2 g/dL (3.5-5.2); Alkaline Phosphatase 70 U/L (40-130); Anion Gap 17.8 (5-19); Aspartate Amino Transferase 8 U/L (0-40); Blood Urea Nitrogen 16 mg/dL (8-23); Calcium 8.8 mg/dL (8.5-10.5); Carbon Dioxide 24 mmol/L (22-29); Chloride 100 mmol/L (98-107); Creatinine Clr Calc Pharmacy 104.0540; Globulin 1.8 g/dL (1.3-4.6); Glucose 281 mg/dL (65-115); Osmolality Calculated 295 mOsm/kg (285-295); Potassium 4.8 mmol/L (3.5-5.1); Sodium 137 mmol/L (136-145); Total Protein 6.0 g/dL (6.6-8.7)
[2025-01-07 12:27] LABS: Troponin(5th) Baseline 17 ng/L (0-15)
[2025-01-07 12:42] LABS: Hematocrit 34.5 % (37-53); Hemoglobin 11.90 g/dL (11.27-16.99); Mean Corpuscular HGB Conc 34.5 g/dL (30-55); Mean Corpuscular Hemoglobin 29.3 pg (27-33); Mean Corpuscular Volume 85.0 fl (82-101); Nucleated Red Blood Cells % 0 %; Platelet Count 255 10^3/cmm (157-399); Red Blood Count 4.06 10^6/uL (3.85-5.65); White Blood Count 4.00 10^3/uL (3.29-11.43)
[2025-01-07] MEDS: nitroglycerin 1 gm/inch oint Pkt 1 INCH TOPICAL (13:28)
--- NOTE | 2025-01-07 13:32 | ECG_ITS ---
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 Measurements Intervals [place] Rate: 79 P: 13 AL: 167 QRS: -11 QRSD: 108 T: 54 QT: 361 QTc: 415 Interpretive Statements SINUS RHYTHM Compared to ECG 01/07/2025 10:46:49 Intraventricular conduction delay no longer present Electronically Signed On 01-08-2025 08:46:22 CDT by Tonio Goff M.D. [email or web address]
[2025-01-07 13:51] LABS: Troponin 5 2HR 15.68 ng/L (0-15)
[2025-01-07 13:54] LABS: Troponin 5 2HR Delta -1.32 ABS# (0-10)
== END 2025-01-07 14:40 | disposition home or self-care (01) ==
PROVIDERS: Emergency Provider Family Medicine
DX: R07.89 Other chest pain (principal); K21.9 Gastro-esophageal reflux disease without esophagitis
CPT/HCPCS: 36415; 71045; 80053; 84484; 85025; 93005; 99285; J9999